=== PATIENT | male | born 1960 | race Caucasian/White ===

== ENCOUNTER 2020-11-17 07:29 | Emergency (ER) | payer OTHER ==
[~2020-11-17] VITALS: Ht 175.3 cm; Wt 136.1 kg
[2020-11-17 08:30] VITALS: BP 195/130
== END 2020-11-17 13:45 ==
LOC: ER 07:29
DX: I46.9 Cardiac arrest, cause unspecified (principal)
CPT/HCPCS: 31500; 92950